=== PATIENT | female | born 1995 | race African-American/Black ===

== ENCOUNTER 2023-05-26 09:26 | Emergency (ER) | payer MEDICAID ==
[~2023-05-26] VITALS: Ht 177.8 cm; Wt 75.0 kg
[2023-05-26 09:36] VITALS: O2SAT 99
[2023-05-26 11:46] LABS: BASOPHILS % 0.2 % (0.0-2.0); EOSINOPHILS % 1.2 % (0.0-5.0); HEMATOCRIT. 32.8 % (36.0-48.0); HEMOGLOBIN. 10.8 g/dL (12.0-16.0); LYMPHOCYTES % 16.1 % (20.0-50.0); MEAN CORPUSCULAR HEMOGLOBIN 30.2 pg (28.0-32.0); MEAN CORPUSCULAR HGB CONC 33.1 g/dL (31.0-37.0); MEAN CORPUSCULAR VOLUME 91.3 fL (81.0-99.0); MEAN PLATELET VOLUME 9.3 fl (7.4-10.4); MONOCYTES % 8.6 % (2.0-8.0); NEUTROPHILS % 73.9 % (40.0-76.0); PLATELET 145 x1000/uL (130-400); RED BLOOD CELL COUNT 3.59 mill/uL (4.2-5.4); RED CELL DISTRIBUTION WIDTH 13.7 % (11.6-14.6); WHITE BLOOD COUNT 8.3 x1000/uL (4.5-11.0)
[2023-05-26 12:01] LABS: ALANINE AMINOTRANSFERASE 72 IU/L (10-49); ALBUMIN 3.1 g/dL (3.2-4.8); ASPARTATE AMINOTRANSFERASE 43 IU/L (<34); BILIRUBIN TOTAL 0.7 mg/dL (0.1-1.0); CALCIUM 8.4 mg/dL (8.7-10.4); CARBON DIOXIDE 27 mEq/L (21-32); CHLORIDE 109 mEq/L (98-107); CREATININE 0.4 mg/dL (0.6-1.0); GLUCOSE 78 mg/dL (70-105); POTASSIUM 4.1 mEq/L (3.5-5.1); PROTEIN TOTAL 5.2 g/dL (6.0-8.3); SODIUM 140 mEq/L (136-145)
[2023-05-26 12:14] LABS: UREA NITROGEN BLOOD < 5 mg/dL (9-23)
[2023-05-26 12:31] LABS: CLARITY URINE CLOUDY (CLEAR); COLOR URINE ORANGE (YELLOW); GLUCOSE URINE NEGATIVE (NEGATIVE); KETONES URINE NEGATIVE (NEGATIVE); LEUKOCYTE ESTERASE URINE 3+ (NEGATIVE); NITRITE URINE NEGATIVE (NEGATIVE); OCCULT BLOOD URINE 3+ (NEGATIVE); PH URINE 8.5 (4.5-8.0); PROTEIN URINE 2+ (NEGATIVE); SPECIFIC GRAVITY URINE 1.011 (1.005-1.030); UROBILINOGEN URINE 0.2 E.U./dL (0.2-1.0)
[2023-05-26] MEDS ORDERED: CEPHALEXIN 250MG CAPSULE PO ONE (13:00)
[2023-05-26 13:15] VITALS: TEMP 98.2
[2023-05-26] MEDS ORDERED: ACETAMINOPHEN 325MG TABLET PO ONE (13:15)
[2023-05-26 17:15] VITALS: BP 153/88; PULSE 68; RESP 18
[2023-05-26] MEDS ORDERED: KETOROLAC 15MG/ML VIAL IV ONE (17:15)
[2023-05-26 17:43] LABS: SQUAMOUS EPITHELIAL CELL URINE 2+ /lpf (RARE/1+); WBC URINE 50-100 /hpf (0-2)
[2023-05-26 17:44] LABS: BACTERIA URINE 2+; RBC URINE 50-100 /hpf (0-2)
[2023-05-26] MEDS ORDERED: CEPH500C2 MT (17:45)
== END 2023-05-26 19:10 | disposition left against medical advice (07) ==
LOC: ER 09:26
DX: R51.9 Headache, unspecified (principal); M54.50 Low back pain, unspecified; N39.0 Urinary tract infection, site not specified
CPT/HCPCS: 80053; 81003; 81025; 85025; 87086; 36415; 70450; 72148; 96374; 99285; J1885; Z7610